=== PATIENT | male | born 1950 | race Caucasian/White ===

== ENCOUNTER 2020-11-21 11:57 | Emergency (ER) | payer MEDICARE, SELFPAY ==
[~2020-11-21 11:57] MED LIST: ALEVE220 MG PO; ASPIRIN EC81 MG PO; IRBESARTAN150 MG PO; METFORMIN HCL500 MG PO; PRILOSEC20 MG PO
[2020-11-21 12:47] LABS: BASOPHIL 0.9 % (0-2); HCT 45.5 % (42.0-52.0); HGB 15.3 g/dl (13.2-18.0); LYMPHOCYTE 24.5 % (15-48); MCH 30.6 pg (25.0-31.0); MCHC 33.6 g/dL (32.0-36.0); MPV 10.3 fL (6.0-9.5); NEUTROPHIL 66.3 % (41-80); NRBC 0; PLT 279 K/uL (150-400); RDW 12.7 % (11.5-14.0); WBC 7.8 K/uL (4.0-10.5)
[2020-11-21 13:04] LABS: INR 1.06 (0.9-1.2); PROTHROMBIN TIME 13.1 SECONDS (11.4-13.6)
[2020-11-21 13:05] LABS: PTT 28.6 SECONDS (22.2-34.7)
[2020-11-21 13:11] LABS: ALBUMIN 4.1 g/dL (3.4-5.0); BILIRUBIN - TOTAL 0.6 mg/dL (0.2-1.0); BUN/CREAT RATIO (CALC) 12.9 RATIO; CREATININE 0.7 mg/dL (0.67-1.17); GLOBULIN (CALCULATION) 3.6 g/dL; POTASSIUM 4.3 mmol/L (3.5-5.1); TOTAL PROTEIN 7.7 g/dL (6.4-8.2)
== END 2020-11-21 15:14 | disposition home or self-care (01) ==
LOC: FER 11:57
PROVIDERS: Nurse Practitioner Family
DX: R00.2 Palpitations (principal); E11.9 Type 2 diabetes mellitus without complications; I10 Essential (primary) hypertension; Z87.19 Personal history of other diseases of the digestive system; Z88.0 Allergy status to penicillin; Z88.8 Allergy status to other drugs, medicaments and biological substances
CPT/HCPCS: 36415; 71046; 80053; 84484; 85025; 85610; 85730; 93005